=== PATIENT | female | born 1940 | race Hispanic/Latino ===

== ENCOUNTER → 2020-10-26 14:06 | Outpatient (CLI) | payer MEDICAID, SELFPAY ==
[2020-10-26 15:41] LABS: Erythrocyte Sedimentation Rate 35 mm/hr (0-30)
[2020-10-26 15:43] LABS: Absolute Lymphocyte Count 1.35 X10^3/uL (0.83-4.51); Absolute Neutrophil Count 4.4 X10^3/uL (2.0-7.7); Basophil# 0.04 X10^3/uL; Basophil% 0.6 % (0-1); Eosinophil# 0.05 X10^3/uL; Eosinophils% 0.8 % (0-5); Hematocrit 34.4 % (37-47); Hemoglobin 11.6 g/dL (12.0-15.0); Lymphocyte # 1.35 X10^3/ul (0.83-4.51); Lymphocyte % 21.9 % (19-41); Mean Corp Hgb Conc 33.7 g/dL (32-36); Mean Corpuscular Hgb 31.1 pg (27.0-32.0); Mean Corpuscular Volume 92.2 fL (81-99); Mean Platelet Vol. 8.5 fl (6.2-12.0); Monocyte# 0.28 X10^3/uL; Monocyte% 4.5 % (0-10); NRBC Flagged by Analyzer 0 % (0-5); Neutrophil # 4.42 X10^3/uL (2.7-7.7); Neutrophil % 71.7 % (47-70); Platelet Count 362 K/mm3 (150-450); RBC Distribution Width CV 16.2 % (11.6-14.6); RBC Distribution Width SD 54.4 fl (35.1-43.9); Red Blood Count 3.73 M/mm3 (4.2-5.4); White Blood Count 6.2 K/mm3 (4.4-11.0)
[2020-10-26 16:12] LABS: ALB/GLOB Ratio 0.8 RATIO (0.9-2.4); AST(SGOT) 19 U/L (15-37); Alanine Aminotransfer ALT/SGPT 25 U/L (13-56); Albumin, Serum 3.3 g/dL (3.2-5.0); Alkaline Phosphatase 74 U/L (45-117); Anion Gap 8 (5-15); BUN 16 mg/dL (7-18); BUN/Creat Ratio 18.8 RATIO (10-20); CRP < 2.90 mg/L (0.0-3.0); Calcium,Total 7.4 mg/dL (8.5-10.1); Chloride 91 mmol/L (98-107); Creatinine, Serum 0.85 mg/dL (0.55-1.02); EST Glomerular Filtration Rate 68 mL/min (>60); Est Glom Filt Rate - Afr Amer 82 mL/min (>60); Globulin 4.3 g/dL (2.2-4.2); Glucose 180 mg/dL (74-106); Potassium 3.9 mmol/L (3.5-5.1); Protein, Total 7.6 g/dL (6.4-8.2); Sodium Level 125 mmol/L (136-145)
[2020-10-27 14:26] LABS: Hemoglobin A1c 5.6 % (3.8-5.6)
[2020-10-29 12:49] LABS: CCP IgG Antibodies > 250 units (0-19)
== END ==
PROVIDERS: PCP Family Medicine; Referring Provider Family Medicine; Visit Provider Family Medicine
DX: M06.9 Rheumatoid arthritis, unspecified (principal); I10 Essential (primary) hypertension; R73.9 Hyperglycemia, unspecified
CPT/HCPCS: 36415; 80053; 83036; 85025; 85652; 86140; 86200; 86431

== ENCOUNTER → 2020-11-12 12:40 | Outpatient (CLI) | payer MEDICAID, SELFPAY ==
[2020-11-12 13:52] LABS: Anion Gap 4 (5-15); BUN 15 mg/dL (7-18); BUN/Creat Ratio 19.5 RATIO (10-20); Calcium,Total 7.6 mg/dL (8.5-10.1); Chloride 101 mmol/L (98-107); Creatinine, Serum 0.77 mg/dL (0.55-1.02); EST Glomerular Filtration Rate 76 mL/min (>60); Est Glom Filt Rate - Afr Amer 92 mL/min (>60); Glucose 105 mg/dL (74-106); Potassium 3.9 mmol/L (3.5-5.1); Sodium Level 133 mmol/L (136-145)
== END ==
PROVIDERS: PCP Family Medicine; Visit Provider Family Medicine
DX: E87.1 Hypo-osmolality and hyponatremia (principal)
CPT/HCPCS: 36415; 80048

== ENCOUNTER 2020-12-04 09:01 | Observation (INO) | payer MEDICAID, SELFPAY ==
[2020-12-04] VITALS (9 sets, daily range): BP systolic 131–183; BP diastolic 53–96; PULSE 51–76; RESP 16–19; TEMP 36.2–36.8; O2SAT 95–98; BMI 34.7; BMI 34.1
--- NOTE | 2020-12-04 09:26 | EX.ED.DYSGE1 ---
HPI History of Present Illness Chief Complaint: Hypertension Informant: patient and family (Granddaughter) Onset/Context/Timing Onset: Yesterday Context: Gradual Onset Timing: Waxes and wanes Quality: Achy Quality - All: similar prior headaches Location: Bifrontal Current Severity: Gone Maximum Severity: Mild Worsened by: Unknown Relieved by: Nothing in particular Associated Symptoms Associated Symptoms: Swelling in ankles since yesterday Narrative Narrative: Guyanese-speaking patient presenting with her granddaughter who is bilingual and interprets. Granddaughter brought her in because she was concerned about her blood pressure being 181 at home although it is better now. She had a headache earlier, the patient states she feels fine now. She has had headaches off and on for a long time, she states that is nothing new. She has been urinating a lot overnight yesterday, and had swelling in her ankles which is new. She denies any fevers, chills, abdominal pain, nausea, vomiting, hematuria, dysuria, she has had some low back discomfort for the last day or so. She was doing some working in the yard, she does not say the pain is severe and it does not radiate into her legs. No thoracic symptoms. No focal neurologic symptoms or vision changes. She is on medication for blood pressure that she was put on recently, but the patient and granddaughter do not know what it is. She recently came here from [facility], she was on medications in [facility] that are unknown but only for arthritis and blood pressure. No history of heart problems. [facility] Medical History Arthritis Hypertension Allergy/AdvReac Type Severity Reaction Status Date / Time No Known Allergies Allergy Verified 12/04/20 09:04 Social History Smoking Status: Never smoker ROS ROS ED Constitutional Constitutional ED: Denies chills or fever(s) Eyes Eyes: Denies change in vision or diplopia ENT ENT ED: Denies rhinorrhea or sore throat Cardiovascular Cardiovascular: Reports pedal edema; Denies chest pain, orthopnea or palpitations Respiratory/Chest Respiratory/Chest: Denies chest congestion, chest tightness, cough, dyspnea, dyspnea on exertion or orthopnea Gastrointestinal Gastrointestinal: Denies abdominal pain, diarrhea, nausea or vomiting Genitourinary Genitourinary ED: Denies dysuria or hematuria Musculoskeletal Musculoskeletal: Reports back pain and joint pain; Denies extremity pain or neck pain Integumentary Denies abscess or rash Neurologic Neurologic: Reports as per HPI; Denies headache(s), paresthesias or weakness Psychiatric Psychiatric: Denies anxiety or suicidal thoughts EXAM Physical Exam Const Vital Signs: 12/04/20 09:02 12/04/20 09:10 12/04/20 11:01 Temperature 98 F Temperature Source Temporal Pulse Rate 76 62 Respiratory Rate 18 19 H Respiratory Effort Normal Non-Labored Respiratory Pattern Normal Blood Pressure 161/77 H 183/64 H Blood Pressure Mean 105 103 Pulse Ox 98 96 Oxygen Delivery Method Room Air Room Air Positive well nourished and well developed General Appearance ED: well developed and NAD HEENT Reports moist mucous membranes normocephalic and atraumatic Eyes PERRL and EOMs intact bilaterally Neck full ROM, no lymphadenopathy, supple and no JVD Resp normal respiratory effort and clear to auscultation bilaterally Cardio regular rate, regular rhythm and no murmurs GI non-tender and non-distended Auscultation: normoactive bowel sounds Palpation: soft Back/Spine no CVA tenderness General Back: other FROM Extremity normal to inspection Extremity Narrative: Trace bilateral lower extremity symmetric pedal edema without tenderness or cellulitis, to about the distal mcdonnell General Extremety ED: Yes edema; Negative for pulses abnormal or tenderness General Extremity: edema; Negative for pulses abnormal Neuro oriented x3, CN's II-XII intact bilaterally and no sensory deficits noted Sensorium / Orientation: awake and alert Motor Exam: strength 5/5 throughout Skin no rashes or lesions noted and no wounds MDM MDM MDM Narrative Medical decision making narrative: Basic screening labs were obtained, and unexpectedly her troponin is nonspecifically elevated at 0.054 which is still very low. She has never been here before so we do not have old measurements or EKG. Her EKG is normal and she is having no symptoms of angina. The edema in her legs may be related to the heat recently, poor venous circulation, etc. No sign of any hepatic or renal dysfunction. I obtained a repeat troponin 2 hours later, it went up slightly to 0.056. Her pressure also went up to 190, she was given clonidine just prior to that so it really has not had time to work yet. Plan is for inpatient observation for blood pressure control and trending of the troponin, and continuing to evaluate. Discussed with Dr. Nikia armas/ cardiology and Dr. Barrios hospitalist. Lab Data Attestation: I reviewed the patient's lab results. Labs: Laboratory Results - last 24 hr 12/04/20 12/04/20 12/04/20 09:35 09:35 09:35 WBC 4.0 L RBC 3.86 L Hgb 12.1 Hct 35.9 L MCV 93.0 MCH 31.3 MCHC 33.7 RDW Std Deviation 48.7 H RDW Coeff of Joni 14.4 Plt Count 269 MPV 8.7 Immature Gran % (Auto) 0.200 Neut % (Auto) 58.2 Lymph % (Auto) 30.2 [place] % (Auto) 7.7 Eos % (Auto) 3.2 Baso % (Auto) 0.5 Absolute Neuts (auto) 2.4 Absolute Lymphs (auto) 1.22 Nucleated RBC % 0 Sodium 138 Potassium 3.6 Chloride 104 Carbon Dioxide 27.0 Anion Gap 7 BUN 14 Creatinine 0.90 Estim Creat Clear Calc 53.49 Est GFR (MDRD) Af Amer 77 Est GFR (MDRD) Non-Af 63 BUN/Creatinine Ratio 15.5 Glucose 115 H Calcium 7.6 L Troponin I 0.054 H B-Natriuretic Peptide 133.5 H Urine Color Urine Clarity Urine pH Ur Specific [place] Urine Protein Urine Glucose (UA) Urine Ketones Urine Occult Blood Urine Nitrite Urine Bilirubin Urine Urobilinogen Ur Leukocyte Esterase Urine RBC Urine WBC Ur Squamous Epith Cells Urine Bacteria Urine Mucus 12/04/20 12/04/20 10:45 11:25 WBC RBC Hgb Hct MCV MCH MCHC RDW Std Deviation RDW Coeff of Joni Plt Count MPV Immature Gran % (Auto) Neut % (Auto) Lymph % (Auto) [place] % (Auto) Eos % (Auto) Baso % (Auto) Absolute Neuts (auto) Absolute Lymphs (auto) Nucleated RBC % Sodium Potassium Chloride Carbon Dioxide Anion Gap BUN Creatinine Estim Creat Clear Calc Est GFR (MDRD) Af Amer Est GFR (MDRD) Non-Af BUN/Creatinine Ratio Glucose Calcium Troponin I 0.056 H B-Natriuretic Peptide Urine Color Yellow Urine Clarity Sl. Cloudy Urine pH 7.0 Ur Specific [place] 1.010 Urine Protein Negative Urine Glucose (UA) Normal Urine Ketones Negative Urine Occult Blood 25 H Urine Nitrite Negative Urine Bilirubin Negative Urine Urobilinogen Normal Ur Leukocyte Esterase 100 H Urine RBC 0 SEEN Urine WBC 0-5 SEEN Ur Squamous Epith Cells 0-5 SEEN Urine Bacteria RARE Urine Mucus 0 SEEN EKG Initial EKG: Attestation: I personally reviewed and interpreted this EKG as follows: Interpretation: Sinus Rhythm and No Acute Injury Pattern Comments: normal EKG Prior EKG tracings: not available for review Discharge Plan Dx/Rx/DC Orders Clinical Impression: Hypertensive urgency, Elevated troponin I level Disposition Disposition: Acute Care Hospital [facility]
[2020-12-04 09:41] LABS: Absolute Lymphocyte Count 1.22 X10^3/uL (0.83-4.51); Absolute Neutrophil Count 2.4 X10^3/uL (2.0-7.7); Basophil# 0.02 X10^3/uL; Basophil% 0.5 % (0-1); Eosinophil# 0.13 X10^3/uL; Eosinophils% 3.2 % (0-5); Hematocrit 35.9 % (37-47); Hemoglobin 12.1 g/dL (12.0-15.0); Lymphocyte # 1.22 X10^3/ul (0.83-4.51); Lymphocyte % 30.2 % (19-41); Mean Corp Hgb Conc 33.7 g/dL (32-36); Mean Corpuscular Hgb 31.3 pg (27.0-32.0); Mean Platelet Vol. 8.7 fl (6.2-12.0); Monocyte# 0.31 X10^3/uL; Monocyte% 7.7 % (0-10); NRBC Flagged by Analyzer 0 % (0-5); Neutrophil # 2.35 X10^3/uL (2.7-7.7); Neutrophil % 58.2 % (47-70); Platelet Count 269 K/mm3 (150-450); RBC Distribution Width CV 14.4 % (11.6-14.6); RBC Distribution Width SD 48.7 fl (35.1-43.9); Red Blood Count 3.86 M/mm3 (4.2-5.4)
[2020-12-04 10:00] LABS: BNP,B-Type NATRIURETIC PEPTIDE 133.5 pg/mL (0-100)
[2020-12-04 10:01] LABS: Anion Gap 7 (5-15); BUN 14 mg/dL (7-18); BUN/Creat Ratio 15.5 RATIO (10-20); Calcium,Total 7.6 mg/dL (8.5-10.1); Chloride 104 mmol/L (98-107); EST Glomerular Filtration Rate 63 mL/min (>60); Est Glom Filt Rate - Afr Amer 77 mL/min (>60); Estimated Creatinine Clearance 53.49 ml/min; Glucose 115 mg/dL (74-106); Potassium 3.6 mmol/L (3.5-5.1); Sodium Level 138 mmol/L (136-145)
--- NOTE | 2020-12-04 10:31 | EKG12_ITS ---
Test Reason : HYPERTENSION Blood Pressure : / mmHG Vent. Rate : 063 BPM Atrial Rate : 063 BPM P-R Int : 172 ms QRS Dur : 088 ms QT Int : 426 ms P-R-T Axes : 062 059 071 degrees QTc Int : 435 ms Normal sinus rhythm Normal ECG Confirmed by GAL GONSALES, MIL ([id number]), newspaper or periodical editor SUSAN REEVES ([id number]) on 12/07/2020 10:04:02 AM Referred By: Confirmed By:MIL SANTO MD
--- NOTE | 2020-12-04 10:36 | NURSING ---
NO OLD EKGS
[2020-12-04 10:49] LABS: Mucous, Urine 0 SEEN /hpf (<or=2+); Red Blood Cells-Urine 0 SEEN /hpf (0-5)
[2020-12-04 11:26] LABS: Color, Urine Yellow (Yellow); Glucose, Dipstick Normal (Normal); Ketone-Dipstick Negative (Negative); Leukocyte Esterase-Dipstick 100 /ul (Negative); Nitrite-Dipstick Negative (Negative); Occult Blood-Urine 25 /ul (Negative); Protein-Dipstick Negative (Negative); Urine Bilirubin Dipstick Negative (Negative); Urine Clarity Sl. Cloudy (Clear); Urine Urobilinogen Normal (Normal)
[2020-12-04 11:37] LABS: Bacteria RARE /hpf (None Seen); Squamous Epithelial Cells - UA 0-5 SEEN /hpf (5-10); White Blood Cells 0-5 SEEN /hpf (0-5)
[2020-12-04] MEDS: cloNIDine HCl 0.2 MG Tablet PO (11:49)
--- NOTE | 2020-12-04 12:44 | HP.PCM.HOS_ITS ---
HPI - General General Date of Admission: 12/04/20 HPI Kamryn GODOY, is a 80 F with a PMH as outlined who presents via the ED with a complaint of high blood pressure. She was being treated for hypertension and arthritis in [place]. She has not been placed on medication for blood pressure here by her new PCP. Her BP was 180 systolic this morning and also had bilateral ankle edema. She denied any fever, chills, chest pain, palpitations, dizziness or any urinary symptoms. Initial troponin was intermediate. She was given clonidine. Repeat troponin had trended up slightly so decision was made to admit her for management of poorly controlled blood pressure and indeterminate troponins. Vitals in the ED with temperature of 98 Fahrenheit with pulse rate of 62, respiratory rate of 19 and blood pressure of 183/64 at time of review. She was saturating at 96% on room air. EKG showed no acute ST changes and CXR also showed no acute cardiopulmonary process. She is being admitted to be managed for hypertensive urgency and indeterminate troponins. History was taken via patient's granddaughter who interpreted on patient's behalf (Patient speaks only Luxembourgish). [facility] Medical History Arthritis Hypertension Allergy/AdvReac Type Severity Reaction Status Date / Time No Known Allergies Allergy Verified 12/04/20 09:04 Social History Smoking Status: Never smoker ROS Constitutional Constitutional: Denies anorexia, change in weight, chills, fatigue, fever(s) or malaise Eyes Eyes: Denies blurry vision, double vision or loss of vision ENT HEENT: Reports abnormal hearing and headache(s); Denies ear pain, hearing loss or nasal discharge Cardiovascular Cardiovascular: Denies chest pain, dyspnea on exertion, lightheadedness, orthopnea or palpitations Respiratory/Chest Respiratory/Chest: Denies cough, productive cough, shortness of breath at rest or shortness of breath with exertion Gastrointestinal Gastrointestinal: Denies abdominal pain, constipation or diarrhea Genitourinary Genitourinary: Denies difficulty urinating Neurologic Neurologic: Reports headache(s); Denies confusion, dizziness, focal weakness, numbness or paresthesias Psychiatric Psychiatric: Denies anxiety Hematologic/Lymphatic Hematologic/Lymphatic: Denies anemia Vital Signs Vital Signs Vital Signs: 12/04/20 09:02 12/04/20 09:10 12/04/20 11:01 Temperature 98 F Temperature Source Temporal Pulse Rate 76 62 Respiratory Rate 18 19 H Respiratory Effort Normal Non-Labored Respiratory Pattern Normal Blood Pressure 161/77 H 183/64 H Blood Pressure Mean 105 103 Pulse Ox 98 96 Oxygen Delivery Method Room Air Room Air Weight Weight: 155 lb Body Mass Index (BMI) 34.7 Physical Exam Const alert and oriented x3 General Appearance: cooperative HEENT normocephalic, head/scalp atraumatic, hearing grossly normal bilaterally and moist oral mucous membranes Eyes PERRL, EOMs intact bilaterally and conjunctivae normal Neck no lymphadenopathy Resp normal respiratory effort Cardio regular rate, regular rhythm, S1 normal heart sound, S2 normal heart sound and no murmurs GI normal to inspection, nondistended, normoactive bowel sounds, soft to palpation, non-tender and non-distended Extremity normal to inspection, full ROM and no clubbing, cyanosis or edema Peripheral Pulses: Yes pulses 2+ throughout Skin no rashes or lesions noted Neuro oriented x3 Sensorium / Orientation: awake and alert Psych affect normal Results Lab / Micro Data Result Diagrams: 12/04/20 09:35 12/04/20 09:35 Labs: Laboratory Results - last 24 hr 12/04/20 12/04/20 12/04/20 09:35 09:35 09:35 WBC 4.0 L RBC 3.86 L Hgb 12.1 Hct 35.9 L MCV 93.0 MCH 31.3 MCHC 33.7 RDW Std Deviation 48.7 H RDW Coeff of Joni 14.4 Plt Count 269 MPV 8.7 Immature Gran % (Auto) 0.200 Neut % (Auto) 58.2 Lymph % (Auto) 30.2 [place] % (Auto) 7.7 Eos % (Auto) 3.2 Baso % (Auto) 0.5 Absolute Neuts (auto) 2.4 Absolute Lymphs (auto) 1.22 Nucleated RBC % 0 Sodium 138 Potassium 3.6 Chloride 104 Carbon Dioxide 27.0 Anion Gap 7 BUN 14 Creatinine 0.90 Estim Creat Clear Calc 53.49 Est GFR (MDRD) Af Amer 77 Est GFR (MDRD) Non-Af 63 BUN/Creatinine Ratio 15.5 Glucose 115 H Calcium 7.6 L Troponin I 0.054 H B-Natriuretic Peptide 133.5 H Urine Color Urine Clarity Urine pH Ur Specific [place] Urine Protein Urine Glucose (UA) Urine Ketones Urine Occult Blood Urine Nitrite Urine Bilirubin Urine Urobilinogen Ur Leukocyte Esterase Urine RBC Urine WBC Ur Squamous Epith Cells Urine Bacteria Urine Mucus 12/04/20 12/04/20 10:45 11:25 WBC RBC Hgb Hct MCV MCH MCHC RDW Std Deviation RDW Coeff of Joni Plt Count MPV Immature Gran % (Auto) Neut % (Auto) Lymph % (Auto) [place] % (Auto) Eos % (Auto) Baso % (Auto) Absolute Neuts (auto) Absolute Lymphs (auto) Nucleated RBC % Sodium Potassium Chloride Carbon Dioxide Anion Gap BUN Creatinine Estim Creat Clear Calc Est GFR (MDRD) Af Amer Est GFR (MDRD) Non-Af BUN/Creatinine Ratio Glucose Calcium Troponin I 0.056 H B-Natriuretic Peptide Urine Color Yellow Urine Clarity Sl. Cloudy Urine pH 7.0 Ur Specific [place] 1.010 Urine Protein Negative Urine Glucose (UA) Normal Urine Ketones Negative Urine Occult Blood 25 H Urine Nitrite Negative Urine Bilirubin Negative Urine Urobilinogen Normal Ur Leukocyte Esterase 100 H Urine RBC 0 SEEN Urine WBC 0-5 SEEN Ur Squamous Epith Cells 0-5 SEEN Urine Bacteria RARE Urine Mucus 0 SEEN Assessment & Plan Assessment/Plan (1) Hypertensive urgency: PLAN: #Hypertensive urgency * Blood pressure was up in the 180s systolic. * Was given a dose of clonidine in the ED. * Start on PO HCTZ 25mg daily and hydralazine PO 25mg bid. Cannot give calcium channel heri due to complaints of lower extremity edema and I will hold off on beta-blockers for now on account of bradycardia on admission. * Monitor blood pressure. IV hydralazine as needed. * #Elevated troponin * Initial troponin was 0.054 and trended up slightly to 0.056. Patient does not have any chest pain and this may be as a result of the markedly elevated blood pressure. * Cycle troponins. Sublingual nitroglycerin as needed. P.o. aspirin 81 mg daily. * If troponins trend further upwards, will consider stress test on Sunday. * #Bradycardia: HR at 51. Ranging in the 50s. Asymptomatic. WIll monitor. DVT prophylaxis: Lovenox CODE STATUS: * I discussed extensively with patient's granddaughter about differences between full code, DNR CCA and DNR CCA. Patient's granddaughter says she did not want to discuss CODE STATUS with her grandmother now as she felt that this might scare her with pressure into insisting on being discharged. She would therefore want to hold off on the discussion for now until her grandmother is more settled in the hospital. We will therefore put patient as full code for now. Total [id number] time 16 minutes. Charges/Coding Visit Charges OBSV E&M: 24888 Initial observation care L3 Procedures Hospitalists Procedures: 25231 Advncd Care Plan 30 Min
--- NOTE | 2020-12-04 14:00 | EKG12_ITS ---
Test Reason : ELEVATED TROP Blood Pressure : / mmHG Vent. Rate : 055 BPM Atrial Rate : 055 BPM P-R Int : 180 ms QRS Dur : 082 ms QT Int : 476 ms P-R-T Axes : 062 052 075 degrees QTc Int : 455 ms Sinus bradycardia Otherwise normal ECG Confirmed by GAL GONSALES, MIL ([id number]), associate editor SUSAN REEVES ([id number]) on 12/07/2020 10:28:21 AM Referred By: BELLA Confirmed By:MIL SANTO MD
[2020-12-04] MEDS: hydrALAZINE 25 MG Tablet PO (21:24)
[2020-12-05] VITALS (9 sets, daily range): BP systolic 143–164; BP diastolic 47–68; PULSE 52–62; RESP 16–18; TEMP 36.6–36.9; O2SAT 96–97
[2020-12-05 05:38] LABS: Absolute Lymphocyte Count 1.23 X10^3/uL (0.83-4.51); Absolute Neutrophil Count 2.3 X10^3/uL (2.0-7.7); Basophil# 0.02 X10^3/uL; Basophil% 0.5 % (0-1); Eosinophil# 0.15 X10^3/uL; Eosinophils% 3.7 % (0-5); Hematocrit 33.7 % (37-47); Hemoglobin 11.2 g/dL (12.0-15.0); Lymphocyte # 1.23 X10^3/ul (0.83-4.51); Lymphocyte % 30.4 % (19-41); Mean Corp Hgb Conc 33.2 g/dL (32-36); Mean Corpuscular Volume 93.4 fL (81-99); Monocyte# 0.35 X10^3/uL; Monocyte% 8.6 % (0-10); NRBC Flagged by Analyzer 0 % (0-5); Neutrophil # 2.29 X10^3/uL (2.7-7.7); Neutrophil % 56.6 % (47-70); Platelet Count 253 K/mm3 (150-450); RBC Distribution Width CV 14.2 % (11.6-14.6); RBC Distribution Width SD 48.2 fl (35.1-43.9); Red Blood Count 3.61 M/mm3 (4.2-5.4); White Blood Count 4.1 K/mm3 (4.4-11.0)
[2020-12-05 05:54] LABS: Anion Gap 5 (5-15); BUN 15 mg/dL (7-18); BUN/Creat Ratio 21.9 RATIO (10-20); Calcium,Total 7.6 mg/dL (8.5-10.1); Chloride 103 mmol/L (98-107); Creatinine, Serum 0.68 mg/dL (0.55-1.02); EST Glomerular Filtration Rate 87 mL/min (>60); Est Glom Filt Rate - Afr Amer 106 mL/min (>60); Estimated Creatinine Clearance 47.11 ml/min; Glucose 94 mg/dL (74-106); Potassium 3.7 mmol/L (3.5-5.1); Sodium Level 135 mmol/L (136-145)
[2020-12-05] MEDS: hydroCHLOROthiazide 25 MG Tablet PO (09:27)
[2020-12-05] MEDS: hydrALAZINE 25 MG Tablet PO ×2 (09:27→21:18)
[2020-12-05] MEDS: Enoxaparin 40 MG/0.4 ML Syringe SC (09:28)
--- NOTE | 2020-12-05 09:31 | PN.HOSP_ITS ---
Subjective Subjective Patient seen and examined. Daughter was by her bedside and interpreted for patient. Patient complained of a mild headache and joint pains. Review of systems were otherwise negative. BP control is improving. Troponins trended up slightly from 0.054-> 0.058 at its peak. She denies any chest pain. She was noted to be bradycardic overnight but has been asymptomatic. Objective Data Objective Data Vital Signs: Vital Signs Temp Pulse Resp BP Pulse Ox 97.9 F 62 18 164/61 H 97 12/05/20 08:47 12/05/20 08:47 12/05/20 08:47 12/05/20 08:47 12/05/20 08:47 Oxygen Delivery Method Room Air Weight: 151 lb 10.848 oz Body Mass Index (BMI) 34.1 Intake & Output: Intake and Output for Last 24 Hours 12/03/20 12/04/20 12/05/20 23:59 23:59 23:59 Intake Total 200 / 200 100 / 100 Balance 200 / 200 100 / 100 Lab / Micro Data Result Diagrams: 12/05/20 05:26 12/05/20 05:26 Labs: Laboratory Results - last 24 hr 12/04/20 12/04/20 12/04/20 09:35 09:35 09:35 WBC 4.0 L RBC 3.86 L Hgb 12.1 Hct 35.9 L MCV 93.0 MCH 31.3 MCHC 33.7 RDW Std Deviation 48.7 H RDW Coeff of Joni 14.4 Plt Count 269 MPV 8.7 Immature Gran % (Auto) 0.200 Neut % (Auto) 58.2 Lymph % (Auto) 30.2 [place] % (Auto) 7.7 Eos % (Auto) 3.2 Baso % (Auto) 0.5 Absolute Neuts (auto) 2.4 Absolute Lymphs (auto) 1.22 Nucleated RBC % 0 Sodium 138 Potassium 3.6 Chloride 104 Carbon Dioxide 27.0 Anion Gap 7 BUN 14 Creatinine 0.90 Estim Creat Clear Calc 53.49 Est GFR (MDRD) Af Amer 77 Est GFR (MDRD) Non-Af 63 BUN/Creatinine Ratio 15.5 Glucose 115 H Calcium 7.6 L Troponin I 0.054 H B-Natriuretic Peptide 133.5 H Urine Color Urine Clarity Urine pH Ur Specific [place] Urine Protein Urine Glucose (UA) Urine Ketones Urine Occult Blood Urine Nitrite Urine Bilirubin Urine Urobilinogen Ur Leukocyte Esterase Urine RBC Urine WBC Ur Squamous Epith Cells Urine Bacteria Urine Mucus 12/04/20 12/04/20 12/04/20 10:45 11:25 14:44 WBC RBC Hgb Hct MCV MCH MCHC RDW Std Deviation RDW Coeff of Joni Plt Count MPV Immature Gran % (Auto) Neut % (Auto) Lymph % (Auto) [place] % (Auto) Eos % (Auto) Baso % (Auto) Absolute Neuts (auto) Absolute Lymphs (auto) Nucleated RBC % Sodium Potassium Chloride Carbon Dioxide Anion Gap BUN Creatinine Estim Creat Clear Calc Est GFR (MDRD) Af Amer Est GFR (MDRD) Non-Af BUN/Creatinine Ratio Glucose Calcium Troponin I 0.056 H 0.058 H B-Natriuretic Peptide Urine Color Yellow Urine Clarity Sl. Cloudy Urine pH 7.0 Ur Specific [place] 1.010 Urine Protein Negative Urine Glucose (UA) Normal Urine Ketones Negative Urine Occult Blood 25 H Urine Nitrite Negative Urine Bilirubin Negative Urine Urobilinogen Normal Ur Leukocyte Esterase 100 H Urine RBC 0 SEEN Urine WBC 0-5 SEEN Ur Squamous Epith Cells 0-5 SEEN Urine Bacteria RARE Urine Mucus 0 SEEN 12/05/20 12/05/20 05:26 05:26 WBC 4.1 L RBC 3.61 L Hgb 11.2 L Hct 33.7 L MCV 93.4 MCH 31.0 MCHC 33.2 RDW Std Deviation 48.2 H RDW Coeff of Joni 14.2 Plt Count 253 MPV 9.0 Immature Gran % (Auto) 0.200 Neut % (Auto) 56.6 Lymph % (Auto) 30.4 [place] % (Auto) 8.6 Eos % (Auto) 3.7 Baso % (Auto) 0.5 Absolute Neuts (auto) 2.3 Absolute Lymphs (auto) 1.23 Nucleated RBC % 0 Sodium 135 L Potassium 3.7 Chloride 103 Carbon Dioxide 27.0 Anion Gap 5 BUN 15 Creatinine 0.68 Estim Creat Clear Calc 47.11 Est GFR (MDRD) Af Amer 106 Est GFR (MDRD) Non-Af 87 BUN/Creatinine Ratio 21.9 H Glucose 94 Calcium 7.6 L Troponin I B-Natriuretic Peptide Urine Color Urine Clarity Urine pH Ur Specific [place] Urine Protein Urine Glucose (UA) Urine Ketones Urine Occult Blood Urine Nitrite Urine Bilirubin Urine Urobilinogen Ur Leukocyte Esterase Urine RBC Urine WBC Ur Squamous Epith Cells Urine Bacteria Urine Mucus Physical Exam Const alert and oriented x3 General Appearance: cooperative HEENT normocephalic, head/scalp atraumatic, hearing grossly normal bilaterally and moist oral mucous membranes Eyes PERRL, EOMs intact bilaterally and conjunctivae normal Neck no lymphadenopathy Resp normal respiratory effort Cardio regular rate, regular rhythm, S1 normal heart sound, S2 normal heart sound and no murmurs GI normal to inspection, nondistended, normoactive bowel sounds, soft to palpation, non-tender and non-distended Extremity normal to inspection, full ROM and no clubbing, cyanosis or edema Skin no rashes or lesions noted Neuro oriented x3 Sensorium / Orientation: awake and alert Psych affect normal Assessment & Plan Assessment/Plan (1) Hypertensive urgency: PLAN: #Hypertensive urgency * resolved * on PO HCTZ 25mg daily and hydralazine 25mg bid * IV hydralazine prn * #Elevated troponin * troponin trended from 0.054->0.056->0.058 * SL nitroglycerin prn * will order 2D echo for tomorrow. Patient asymptomatic and doesnt have any chest pain. * mild upwards trend in troponins could have been due to patient's hypertensive urgency also * #Bradycardia: asymptomatic. 2D echo ordered for tomorrow #History of rheumatoid arthritis * Daughter brought in her medications which she had been prescribed by her x ray equipment tester in [place]. Patient on methotrexate. We will continue this. Will need follow-up with x ray equipment tester here for renewal of prescriptions and adjustment of her medications as needed. * DVT prophylaxis: Lovenox Charges/Coding Visit Charges Inpatient E&M: 41565 Subs Hosp L2
[2020-12-05] MEDS: Acetaminophen 325 MG Tablet 650 MG PO (09:55)
[2020-12-05] MEDS: predniSONE 1 MG Tablet 2 MG PO (11:45)
[2020-12-05] MEDS: Aspirin 81 MG TAB.CHEW PO (11:45)
[2020-12-05] MEDS: Folic Acid 1 MG Tablet 10 MG PO (11:45)
[2020-12-05] MEDS: Calcium Carb/Vitamin D 1 TABLET Tablet PO (11:46)
[2020-12-06] VITALS (11 sets, daily range): BP systolic 158–177; BP diastolic 57–81; PULSE 55–121; RESP 15–17; TEMP 36.7–36.8; O2SAT 94–97
--- NOTE | 2020-12-06 05:55 | ECHOD_ITS ---
Reason For Study: HTN Procedure This was a 2D Doppler, Color Flow transthoracic echocardiogram. Exam performed portable in patient room. Left Ventricle Normal LV size. Apical false tendon noted. Left ventricular systolic function is normal. The estimated ejection fraction is 65 %. Diastolic function is indeterminate. No regional wall motion abnormalities noted. Right Ventricle Normal RV size. Normal systolic function. Atria Normal left atrium. Normal right atrium. Positive agitated saline contrast study for right to left interatrial shunt compatible with a small PFO versus ASD. Mitral Valve There is no mitral annular calcification. Normal mitral valve. Trivial mitral valve insufficiency. Tricuspid Valve Normal tricuspid valve. Trivial tricuspid valve insufficiency. Unable to estimate RV systolic pressure due to insufficient tricuspid regurgitant envelope. Aortic Valve Trisinus/trileaflet aortic valve. Normal aortic valve. Trivial aortic valve insufficiency. Pulmonic Valve The pulmonic valve is not well visualized. Trivial pulmonic valve insufficiency. Great Vessels Normal sized aortic root. Pericardium/Pleural No pericardial effusion. Medication Performed a rapid injection of agitated mix of 9 cc saline and 1cc air to assess for atrial septal defect. MMode/2D Measurements & Calculations LVIDd: 3.8 cm IVSd: 1.2 cm Ao root diam: 3.0 cm LVIDs: 2.6 cm LVPWd: 1.0 cm RVDd: 4.1 cm FS: 32.8 % LAV(MOD-bp): 41.9 ml LVAd ap4: 22.0 cm2 SV(MOD-sp4): 37.2 ml LAV(MOD-bp) Indexed: 26.3 ml/m2 LVLd ap4: 6.9 cm LAV(MOD-sp2): 41.2 ml EDV(MOD-sp4): 59.4 ml LAV(MOD-sp4): 42.6 ml EDV(sp4-el): 59.2 ml LVAs ap4: 11.9 cm2 LVLs ap4: 5.6 cm ESV(MOD-sp4): 22.2 ml ESV(sp4-el): 21.5 ml EF(MOD-sp4): 62.7 % EF(sp4-el): 63.6 % SV(sp4-el): 37.7 ml LA A4 area: 15.7 cm2 LA dimension(2D): 4.0 cm RA A4 area: 14.1 cm2 Doppler Measurements & Calculations MV E max vik: 43.4 cm/sec Lat Peak E' Vik: 8.4 cm/sec Med Peak E' Vik: 2.9 cm/sec MV A max vik: 85.7 cm/sec E/E' lat: 5.2 E/E' med: 14.9 MV E/A: 0.51 Ao V2 max: 116.5 cm/sec AI max vik: 372.6 cm/sec LV V1 max: 89.1 cm/sec Ao max P.4 mmHg AI max P.5 mmHg LV V1 max P.2 mmHg Ao V2 mean: 84.3 cm/sec Ao mean P.0 mmHg AI dec slope: 189.0 cm/sec2 Ao V2 VTI: 24.6 cm AI P1/2t: 577.6 msec PA V2 max: 97.3 cm/sec PI end-d vik: 93.4 cm/sec ECHO/Echo Complete Interpretation Summary Left ventricular systolic function is normal. The estimated ejection fraction is 65 %. Apical false tendon noted. Trivial mitral valve insufficiency. Trivial tricuspid valve insufficiency. Trivial aortic valve insufficiency. Trivial pulmonic valve insufficiency. Unable to estimate RV systolic pressure due to insufficient tricuspid regurgita nt envelope. Diastolic function is indeterminate. Positive agitated saline contrast study for right to left interatrial shunt com patible with a small PFO versus ASD. Ordering Physician: Gema Barrios Referring Physician: Melinda Ramirez Performed By: Tammy Hallman, ABRAHAN, RVT
[2020-12-06 06:00] LABS: Absolute Lymphocyte Count 1.22 X10^3/uL (0.83-4.51); Absolute Neutrophil Count 2.6 X10^3/uL (2.0-7.7); Basophil# 0.02 X10^3/uL; Basophil% 0.5 % (0-1); Eosinophil# 0.15 X10^3/uL; Eosinophils% 3.4 % (0-5); Hematocrit 35.7 % (37-47); Hemoglobin 11.9 g/dL (12.0-15.0); Lymphocyte # 1.22 X10^3/ul (0.83-4.51); Lymphocyte % 27.9 % (19-41); Mean Corp Hgb Conc 33.3 g/dL (32-36); Mean Corpuscular Hgb 30.8 pg (27.0-32.0); Mean Corpuscular Volume 92.5 fL (81-99); Mean Platelet Vol. 9.3 fl (6.2-12.0); Monocyte# 0.35 X10^3/uL; NRBC Flagged by Analyzer 0 % (0-5); Neutrophil # 2.62 X10^3/uL (2.7-7.7); Platelet Count 279 K/mm3 (150-450); RBC Distribution Width SD 47.1 fl (35.1-43.9); Red Blood Count 3.86 M/mm3 (4.2-5.4); White Blood Count 4.4 K/mm3 (4.4-11.0)
[2020-12-06] MEDS: hydrALAZINE 25 MG Tablet PO (06:11)
[2020-12-06] MEDS: Aspirin 81 MG TAB.CHEW PO (06:11)
[2020-12-06] MEDS: 0.9% Saline Lock 10 ML Syringe IV (06:11)
[2020-12-06 06:22] LABS: Anion Gap 9 (5-15); BUN 16 mg/dL (7-18); BUN/Creat Ratio 22.5 RATIO (10-20); Calcium,Total 8.2 mg/dL (8.5-10.1); Chloride 98 mmol/L (98-107); Creatinine, Serum 0.71 mg/dL (0.55-1.02); EST Glomerular Filtration Rate 84 mL/min (>60); Est Glom Filt Rate - Afr Amer 101 mL/min (>60); Estimated Creatinine Clearance 47.11 ml/min; Glucose 93 mg/dL (74-106); Potassium 3.5 mmol/L (3.5-5.1); Sodium Level 133 mmol/L (136-145)
[2020-12-06] MEDS: predniSONE 1 MG Tablet 2 MG PO (10:49)
[2020-12-06] MEDS: Calcium Carb/Vitamin D 1 TABLET Tablet PO (10:49)
[2020-12-06] MEDS: hydroCHLOROthiazide 25 MG Tablet PO (10:50)
[2020-12-06] MEDS: Methotrexate 2.5 MG Tablet 5 MG PO (10:51)
[2020-12-06] MEDS: Enoxaparin 40 MG/0.4 ML Syringe SC (10:52)
--- NOTE | 2020-12-06 11:36 | PCM.DC ---
Discharge Instructions Diet Discharge Diet: Low fat / Low cholesterol and 2000 mg Sodium Diet Activity Discharge Activity: Return to Normal Activity Dressing / Incision Call your doctor if you observe: Shortness of breath, Dizziness and Chest pain Follow Up Care Test Results: Test results from this visit will be discussed in further detail at your follow-up appointment, if applicable. Discharge Plan Admission Admit Date/Time: 12/04/20 12:58 Primary Reason for Your Visit: High blood pressure Attending Provider: Heidi Marshall Primary Care Provider: Melinda Ramirez Instructions Additional Instructions / Restrictions: Monitor blood pressure twice daily at home, document findings to report to PCP at follow-up. Discharge Orders/Prescriptions Prescriptions: New hydralazine 50 mg tablet 50 mg PO TID Qty: 60 RF: 0 hydrochlorothiazide 25 mg tablet 25 mg PO DAILY Qty: 30 RF: 0 Continued folic acid 5 mg Capsule 10 mg PO QWEEK RF: 0 methotrexate sodium 2.5 mg Tablet 5 mg PO QWEEK RF: 0 aspirin 81 mg Tablet 81 mg PO DAILY RF: 0 Calcium Citrate + D 1,500 mg DAILY RF: 0 prednisone 1 mg Tablet 2 mg PO DAILY RF: 0 Referrals / Follow Up: Melinda Ramirez MD [Primary Care Provider] - In 1 Week Disposition Disposition (needs filled in before D/C Order can be placed): Home, self care
--- NOTE | 2020-12-06 12:05 | NURSING ---
RNCM Note: RN CM Assessment Introduced role of RN CM to patient. Patient is alert, oriented and able to participate in RN CM Assessment. Care providers, pharmacy, and demographics verified. Admit Dx: Hypertensive Emergency, Indeterminate Trop Re-Admit: N/a Obs Barriers/Issues: None, patient is Macedonian speaking. Patient gave permission for emilee Tran at bedside to interpret. 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 Called CCN and s/w Jeremy and states they do go to patient [facility]. Discussed with leonidas and confirmed would like referral- referral was placed. PCP: Melinda Pinto Specialists: None Preferred Pharmacy: [facility] Insurance: [employer] Benefit: Yes LNOK: JULIA GRIFFITH, Yessicastephenie Guthrie Kennedy LW/HPOA: None, AD info provided and informed can return as an outpatient to complete with dept at a later time if chooses. Living Arrangements: Lives with leonidas Tran's parents in a [facility], 5 steps to enter. ADL?s: Independent with ambulation and ADLs Transportation: Either Chelsea's parents or Chelsea. DME: None HHC: None SNF: None Goal: Home with CCN referral. Denies any other needs, questions, concerns, or issues with DC planning at this time. Aware RNCM remains available should any emerging needs arise. DC PLAN: Home with CCN referral, patient provided CCN contact rack card. DAWN Balderas
--- NOTE | 2020-12-06 13:46 | CHAPLAIN ---
Type of Pastoral Visit _x__ Initial Visit ___ Follow-up Visit ___ On-call Visit ___ General Patient Visit ___ Spiritual Assessment ___ Family Conference ___ Bereavement ___ Rapid Response ___ Code Blue ___ Other (describe below) Pastoral Care Referral From _x__ Patient ___ Family ___ Nurse ___ Physician ___ Clergy Member ___ Wheelabrator Operator ___ Other (describe below) Sacrament/Intervention ___ Active listening ___ Anointing ___ Mandaen ___ Bereavement ___ Communion ___ Donna exploration ___ ___ Life review _x__ Prayer ___ Reconciliation ___ Sacrament of Sick _x__ Supportive presence ___ Wedding ___ Other (describe below) Pastoral Comments patient states she does not speak Peruvian; attempted support through basic words and hand signs; offer of prayer accepted
[2020-12-06] MEDS: hydrALAZINE 50 MG Tablet PO (14:04)
--- NOTE | 2020-12-06 14:16 | DS.PCM_ITS ---
Documented by User: Any Gandhi NP, G[employer] DOCUMENTS LIBRARIAN-C 12/06/20 14:23 Providers Date of Admission: 12/04/20 Date of Discharge: 12/06/20 Primary Care Physician: Dr. Melinda Ramirez MD Reason For Visit: HYPERTENSIVE URGENCY, INTERMEDIATE TROPONIN Diagnosis Discharge Diagnosis (1) Hypertensive urgency: Status: Acute Code(s): I16.0 - Hypertensive urgency Medications at Discharge Home Medications Calcium Citrate + D 1,500 mg DAILY 12/05/20 aspirin 81 mg PO DAILY 12/05/20 folic acid 10 mg PO QWEEK 12/05/20 methotrexate sodium 5 mg PO QWEEK 12/05/20 prednisone 2 mg PO DAILY 12/05/20 hydralazine 50 mg PO TID #60 tab 12/06/20 hydrochlorothiazide 25 mg PO DAILY #30 tab 12/06/20 Hospital Course Operations None Procedures 2-D Echocardiogram Summary of Care Provided Minutes Spent on Discharge: 35 Hospital Course: Patient is an 80-year-old female admitted 12/04/2020 due to high blood pressure. 1. Hypertensive urgency-history of hypertension however not on medication regimen. States her blood pressure is chronically 170s at baseline. Blood pressure as high as 183/64 on admission. Initiated on HCTZ 25 mg daily and hydralazine 50 mg 3 times daily. Blood pressure improved. Recommended checking blood pressure twice daily at home and reporting findings for follow-up with PCP for further adjustments. Echocardiogram demonstrated an EF of 65%, apical false tendon noted, small PFO versus ASD. Continue aspirin, hydralazine, HCTZ. Follow-up with PCP in 1 week. 2. Indeterminate troponin-enzymes did not trend. EKG without ST-T changes. Suspect demand ischemia related to #1. 3. Mild bradycardia-stable, heart rate intermittently 50s, no significant bradycardia. 4. Rheumatoid arthritis-on methotrexate, low-dose prednisone. Patient seen and examined prior to discharge. Physical assessment as noted below. Patient is stable for discharge with follow up recommendations as noted above. This patient was seen by Any Gandhi NP-C under the supervision of Dr. Marshall. Physical Exam Const alert, oriented x3 and no apparent distress Orientation / Consciousness: awake, oriented to person, oriented to place and oriented to time HEENT normocephalic and moist oral mucous membranes Eyes PERRL, EOMs intact bilaterally and conjunctivae normal Neck no lymphadenopathy Resp normal respiratory effort and clear to auscultation bilaterally Cardio regular rate, regular rhythm and no murmurs Peripheral Pulses: pulses 2+ throughout GI normal to inspection, nondistended, normoactive bowel sounds, non-tender and non-distended Extremity normal to inspection Skin no rashes or lesions noted Lesions: no lesions Rashes: no rashes Trauma: no lacerations or abrasions Neuro CN's II-XII intact bilaterally, no focal motor deficits, no sensory deficits noted and deep tendon reflexes 2+ bilaterally Psych mental status grossly normal and affect normal ABG / Lab / Microbiology Data Result Diagrams: 12/06/20 05:04 12/06/20 05:04 Laboratory: Laboratory Results - last 24 hr 12/06/20 12/06/20 05:04 05:04 WBC 4.4 RBC 3.86 L Hgb 11.9 L Hct 35.7 L MCV 92.5 MCH 30.8 MCHC 33.3 RDW Std Deviation 47.1 H RDW Coeff of Joni 14.0 Plt Count 279 MPV 9.3 Immature Gran % (Auto) 0.200 Neut % (Auto) 60.0 Lymph % (Auto) 27.9 [place] % (Auto) 8.0 Eos % (Auto) 3.4 Baso % (Auto) 0.5 Absolute Neuts (auto) 2.6 Absolute Lymphs (auto) 1.22 Nucleated RBC % 0 Sodium 133 L Potassium 3.5 Chloride 98 Carbon Dioxide 26.0 Anion Gap 9 BUN 16 Creatinine 0.71 Estim Creat Clear Calc 47.11 Est GFR (MDRD) Af Amer 101 Est GFR (MDRD) Non-Af 84 BUN/Creatinine Ratio 22.5 H Glucose 93 Calcium 8.2 L Radiography Diagnostic Testing: Radiology Impression Echocardiogram 12/06/20 05:55 Interpretation Summary Left ventricular systolic function is normal. The estimated ejection fraction is 65 %. Apical false tendon noted. Trivial mitral valve insufficiency. Trivial tricuspid valve insufficiency. Trivial aortic valve insufficiency. Trivial pulmonic valve insufficiency. Unable to estimate RV systolic pressure due to insufficient tricuspid regurgitant envelope. Diastolic function is indeterminate. Positive agitated saline contrast study for right to left interatrial shunt compatible with a small PFO versus ASD. _ Ordering Physician: Gema Barrios Referring Physician: Melinda Ramirez Performed By: Tammy Hallman, ABRAHAN, RVT D/C Instructions Discharge Diet: Low fat / Low cholesterol and 2000 mg Sodium Diet Call your doctor if you observe: Shortness of breath, Dizziness and Chest pain Meaningful Use Info Meaningful Use Diagnoses (Choose all that apply): None applicable Discharge Plan Admission Admit Date/Time: 12/04/20 12:58 Primary Reason for Your Visit: High blood pressure Attending Provider: Heidi Marshall Primary Care Provider: Melinda Ramirez Instructions Additional Instructions / Restrictions: Monitor blood pressure twice daily at home, document findings to report to PCP at follow-up. Discharge Orders/Prescriptions Prescriptions: New hydralazine 50 mg tablet 50 mg PO TID Qty: 60 RF: 0 hydrochlorothiazide 25 mg tablet 25 mg PO DAILY Qty: 30 RF: 0 Continued folic acid 5 mg Capsule 10 mg PO QWEEK RF: 0 methotrexate sodium 2.5 mg Tablet 5 mg PO QWEEK RF: 0 aspirin 81 mg Tablet 81 mg PO DAILY RF: 0 Calcium Citrate + D 1,500 mg DAILY RF: 0 prednisone 1 mg Tablet 2 mg PO DAILY RF: 0 Referrals / Follow Up: Melinda Ramirez MD [Primary Care Provider] - In 1 Week Disposition Disposition (needs filled in before D/C Order can be placed): Home, self care Documented by User: Dr. Heidi Marshall MD 12/06/20 15:03 Providers Date of Admission: 12/04/20 Reason For Visit: HYPERTENSIVE URGENCY, INTERMEDIATE TROPONIN Medications at Discharge Home Medications Calcium Citrate + D 1,500 mg DAILY 12/05/20 aspirin 81 mg PO DAILY 12/05/20 folic acid 10 mg PO QWEEK 12/05/20 methotrexate sodium 5 mg PO QWEEK 12/05/20 prednisone 2 mg PO DAILY 12/05/20 hydralazine 50 mg PO TID #60 tab 12/06/20 hydrochlorothiazide 25 mg PO DAILY #30 tab 12/06/20 Hospital Course Procedures 2-D Echocardiogram and EKG Summary of Care Provided Minutes Spent on Discharge: 28 Hospital Course: This is an 80 years old presented to the emergency because of elevated blood pressure. Patient's granddaughter was concerned because her grandma blood pressure was more than 180 systolic at home. Reportedly, patient has headache. She denies any chest pain or shortness of breath. Apparently, patient's blood pressure has been always on the higher side, around 170 systolic. She was started on HCTZ daily and hydralazine adjusted to 50 mg p.o. 3 times daily. Her troponin was minimally elevated and flat. Patient denied any chest pain throughout hospital stay. There was no evidence of acute ischemic changes on EKG. With treatment, blood pressure improved. 2D echocardiogram revealed ejection fraction of 65%, positive [id number] shunt compatible with small PFO versus ASD. Patient had no symptoms concerning for stroke. She was already on aspirin. Patient discharged home in a stable medical condition, started on HCTZ 25 mg p.o. daily, hydralazine 50 mg p.o. 3 times daily, continued on her previous home medications without any changes, recommended to check her blood pressure at least twice a day at home, make a blood pressure log and follow-up PCP in 1 week. Physical Exam Const alert, oriented x3, no apparent distress and no limitations HEENT normocephalic, head/scalp atraumatic and moist oral mucous membranes Eyes PERRL, EOMs intact bilaterally, conjunctivae normal and no scleral icterus Neck no lymphadenopathy, supple, no meningeal signs and no JVD Resp normal respiratory effort, normal air movement and clear to auscultation bilaterally Auscultation: Negative for crackles, rales, rhonchi or wheezes Cardio regular rate, regular rhythm, S1 normal heart sound, S2 normal heart sound, no murmurs and no JVD GI normal to inspection, nondistended, normoactive bowel sounds, soft to palpation, non-tender and non-distended; Negative for hepatosplenomegaly Auscultation: normoactive bowel sounds Extremity normal to inspection, full ROM and no clubbing, cyanosis or edema Skin no rashes or lesions noted, no wounds and no petechiae Neuro oriented x3, CN's II-XII intact bilaterally and moves all extremities Sensorium / Orientation: alert Speech: speech normal Motor Exam: strength 5/5 throughout Psych mental status grossly normal, affect normal and denies hallucinations ABG / Lab / Microbiology Data Result Diagrams: 12/06/20 05:04 12/06/20 05:04 Discharge Plan Admission Admit Date/Time: 12/04/20 12:58 Primary Reason for Your Visit: High blood pressure Attending Provider: Heidi Marshall Primary Care Provider: Melinda Ramirez Instructions Additional Instructions / Restrictions: Monitor blood pressure twice daily at home, document findings to report to PCP at follow-up. Discharge Orders/Prescriptions Prescriptions: New hydralazine 50 mg tablet 50 mg PO TID Qty: 60 RF: 0 hydrochlorothiazide 25 mg tablet 25 mg PO DAILY Qty: 30 RF: 0 Continued folic acid 5 mg Capsule 10 mg PO QWEEK RF: 0 methotrexate sodium 2.5 mg Tablet 5 mg PO QWEEK RF: 0 aspirin 81 mg Tablet 81 mg PO DAILY RF: 0 Calcium Citrate + D 1,500 mg DAILY RF: 0 prednisone 1 mg Tablet 2 mg PO DAILY RF: 0 Referrals / Follow Up: Melinda Ramirez MD [Primary Care Provider] - In 1 Week Disposition Disposition (needs filled in before D/C Order can be placed): Home, self care Charges/Coding Visit Charges OBSV E&M: 00628 Observation care discharge
--- NOTE | 2020-12-06 14:21 | PHA.DC.MR ---
Pharmacy Service has performed discharge medication reconciliation for this patient. The patient's discharge medication list was reviewed for discrepancies and discrepancies were resolved. Home Medications Calcium Citrate + D 1,500 mg DAILY 12/05/20 aspirin 81 mg PO DAILY 12/05/20 folic acid 10 mg PO QWEEK 12/05/20 methotrexate sodium 5 mg PO QWEEK 12/05/20 prednisone 2 mg PO DAILY 12/05/20 hydralazine 50 mg PO TID #60 tab 12/06/20 hydrochlorothiazide 25 mg PO DAILY #30 tab 12/06/20
--- NOTE | 2020-12-06 14:32 | CCN.REFER ---
CCN SPOKE WITH PATIENT'S GRANDSON, AND PATIENT/FAMILY AGREEABLE TO CCN FOR VS MONITORING AND MED MANAGEMENT.
--- NOTE | 2020-12-06 15:55 | NURSING ---
Daughter at bedside and discharge teaching completed with her. Questions answered and daughter voiced understanding.
== END 2020-12-06 11:37 | disposition home or self-care (01) ==
LOC: ED 12:22 → PCU 15:16
PROVIDERS: Admitting Provider Student in an Organized Health Care Education/Training Program; Emergency Provider Emergency Medicine; PCP Family Medicine; Visit Provider Hospitalist
DX: I16.0 Hypertensive urgency (principal); I10 Essential (primary) hypertension; M19.90 Unspecified osteoarthritis, unspecified site; Z79.899 Other long term (current) drug therapy; Z79.52 Long term (current) use of systemic steroids; Z79.82 Long term (current) use of aspirin; R60.0 Localized edema; R00.1 Bradycardia, unspecified; R79.89 Other specified abnormal findings of blood chemistry; M06.9 Rheumatoid arthritis, unspecified
CPT/HCPCS: 36415; 80048; 81001; 83880; 84484; 85025; 93005; 93306; 96372; 99218; 99284; A4216; G0378; J8610

== ENCOUNTER 2021-06-27 17:08 | Outpatient (CLI) | payer MEDICAID, SELFPAY ==
[2021-06-27] MEDS: 0.9% Saline Lock 10 ML Syringe IV (17:33)
[2021-06-27 17:37] VITALS: BP 161/75; PULSE 65; RESP 16; TEMP 37; O2SAT 99; BMI 36.1
[2021-06-27 18:43] VITALS: BP 179/76; PULSE 59; RESP 16; TEMP 36.6; O2SAT 99
[2021-06-27 19:43] VITALS: BP 196/95; PULSE 60; RESP 16; TEMP 36.6; O2SAT 99
== END 2021-06-27 19:43 | disposition home or self-care (01) ==
LOC: MS3OUT 17:08 → MS3 17:09
PROVIDERS: PCP Family Medicine; Referring Provider Nurse Practitioner Adult Health; Visit Provider Nurse Practitioner Adult Health
DX: Z23 Encounter for immunization (principal); U07.1 COVID-19
CPT/HCPCS: J7050; M0245; Q0245; A4216